=== PATIENT | female | born 1980 | race Caucasian/White ===

== ENCOUNTER 2020-06-01 16:38 | Outpatient (REF) | payer OTHER, SELFPAY ==
--- NOTE | 2020-06-01 15:50 | PAPFT_PTH ---
PATIENT: RAI LAY LOC: [facility] U#:[id number] AGE/SX: 40/F ROOM: RE06/01/[address]: Griselda Vaz DO : 1980 BED: DIS: 06/01/2020 SPEC #: [id number] RECD: 06/01/20 18:22 STATUS: MELISSA REQ #: [id number] PATTY: 06/01/20 15:[address]: Griselda Vaz DEPT: [facility] Cytology RECD BY: Tonya Duffy Tissues: 1 - CX/ENDOCX FOR PAP SMEARS Procedures: PAP THIN PREP/[facility] Screening HPV DNA PROBE Comments: [id number]
== END 2020-06-01 16:58 ==
LOC: LBN 16:38
PROVIDERS: Visit Provider Obstetrics & Gynecology
DX: Z11.51 Encounter for screening for human papillomavirus (HPV) (principal)
CPT/HCPCS: 88142; 87624